=== PATIENT | female | born 1975 | race Caucasian/White ===

== ENCOUNTER 2025-02-05 07:37 | Emergency (ER) | payer OTHER ==
[2025-02-05 07:50] VITALS: BMI 25.2
[2025-02-05 09:42] LABS: ABSOLUTE IMMATURE GRANULOCYTES 0.02 x10^3/uL (0.0-0.031); BASOPHILS # 0.04 x10^3/uL (0.01-0.08); EOSINOPHIL % 1.9 % (0.7-5.8); EOSINOPHILS # 0.11 x10^3/uL (0.04-0.36); MCHC 33.7 g/dl (32.2-35.5); MEAN CELL VOLUME 89.6 fl (79.4-94.8); MEAN PLT VOLUME 11.4 fl (9.4-12.3); MONOCYTE # 0.42 x10^3/uL (0.24-0.86); MONOCYTE % 7.2 % (4.7-12.5); RDW 13.3 % (12.2-17.1)
[2025-02-05 09:43] LABS: URINE APPEARANCE CLEAR; URINE BILIRUBIN NEGATIVE (NEGATIVE); URINE COLOR YELLOW; URINE GLUCOSE (UA) NEGATIVE (NEGATIVE); URINE KETONE NEGATIVE (NEGATIVE); URINE LEUK ESTERASE NEGATIVE (NEGATIVE); URINE NITRITE NEGATIVE (NEGATIVE); URINE PROTEIN NEGATIVE (NEGATIVE); URINE UROBILINOGEN 0.2 mg/dL (0.2-1.0)
[2025-02-05 10:16] LABS: CO2 26.0 mmol/L (21-32); GLUCOSE,RANDOM 98.0 mg/dL (74-106)
[2025-02-05 10:18] LABS: CREATININE 0.7 mg/dL (0.55-1.3); SGOT/AST 16.0 U/L (15-37); SGPT/ALT 25.0 U/L (13-61)
[2025-02-05 10:20] LABS: TOT PROT 6.9 g/dl (6.4-8.2)
[2025-02-05 10:21] LABS: ALK PHOS 67.0 U/L (45-117)
[2025-02-05 10:23] LABS: ERYTHROCYTE SEDIMENTATION RATE 5 mm/hr (0-20)
[2025-02-05 12:53] VITALS: RESP 16
[2025-02-05] MEDS: SODIUM CHLORIDE 1,000 ML IV STA (14:10)
[2025-02-05 17:20] VITALS: BP 97/54; PULSE 66; TEMP 98.9
== END 2025-02-05 17:55 | disposition home or self-care (01) ==
LOC: JER 07:37
PROC: 3E0337Z Introduction of Electrolytic and Water Balance Substance into Peripheral Vein, Percutaneous Approach (ICD-10-PCS; principal; 2025-02-05)
DX: M79.89 Other specified soft tissue disorders (principal); M79.604 Pain in right leg; M79.605 Pain in left leg
CPT/HCPCS: 36415; 75635-TC; 80053; 81003; 82550; 84703; 85025; 85651; 86140; 93970-TC; 99284-25; Q9967